=== PATIENT | female | born 1975 | race Caucasian/White ===

== ENCOUNTER 2016-08-10 18:47 | Emergency (ER) | payer OTHER ==
[2016-08-10 19:02] VITALS: BP 117/56; PULSE 66; RESP 18; TEMP 97; O2SAT 99
[2016-08-10 19:04] LABS: COLOR DARK YELLOW; LEUKOCYTE ESTERASE,URINE 1+ (NEGATIVE); NITRITE,URINE NEGATIVE (NEGATIVE)
[2016-08-10] MEDS ORDERED: PHENAZOPYRIDINE HCL 200 MG TAB ONE (19:08)
[2016-08-10 19:09] LABS: BACTERIA 1+ /hpf (NONE SEEN); MUCUS 1+ /lpf (NONE-1+); RBC,URINE >182 /hpf (0-3); WBC,URINE 15-25 /hpf (0-3); YEAST OCCASIONAL /hpf (NONE SEEN)
[2016-08-10] MEDS ORDERED: PHENAZOPYRIDINE HCL 200 MG TAB PO ONE (19:10)
[2016-08-10] MEDS ORDERED: CEPHALEXIN 500MG PREPACK#4 BTL TAKEHOME ONE (19:43)
[2016-08-10] MEDS ORDERED: CEPHALEXIN 500 MG CAP PO ONE (19:43)
--- NOTE | 2016-08-10 19:46 | UCPHY ---
H & P Time Seen by Provider: 08/10/16 19:00 Patient Type: New HPI/ROS: HPI Urinary complaints. 41-year-old female by private vehicle. She complains of burning with urination and increased frequency for the last 12-24 hours. No fever. No vomiting. No back pain. ROS: Constitutional: No fever, no chills. No weakness. Gastrointestinal: No abdominal pain, no vomiting, no diarrhea. Genitourinary: No hematuria. As above. Musculoskeletal: No back pain. Skin: No rashes. Neurological: No headache. Past medical history: No significant past medical history. No allergies to antibiotics. Social history: Here by herself. Nonsmoker. Physical Exam: General Appearance: Alert, no distress. This patient is responding to questions appropriately and in full sentences. This patient appears well- hydrated and well-nourished. Eyes: Pupils equal and round no pallor or injection. No lid edema, erythema or injection. Gastrointestinal: Abdomen is soft and nontender, no masses, bowel sounds normal. No focal tenderness at McBurney's point. No Jhaveri sign. Neurological: Motor sensory function is grossly intact. Cranial nerves are normal. Gait is normal. Skin: Warm and dry, no rashes. Musculoskeletal: No CVA tenderness on palpation bilaterally. Extremities are symmetrical. All joints range without pain or impingement. Psychiatric: No agitation. No depression. Database: EKG: Imaging: Procedures: Emergency department course: Urinalysis indicates urinary tract infection. Patient started on Keflex, 500 mg at urgent care. Plan will be to discharge her with a prescription for Keflex , 500 mg, 4 times daily for the next 5 days for treatment of urinary tract infection. Follow-up and return to Urgent Care precautions reviewed with her. All of her questions were answered. She was discharged in good condition. Differential Diagnosis: The differential diagnosis on this patient includes but is not limited to urinary tract. Pyelonephritis, STD unlikely. This represents a partial list of diagnoses considered. These considerations are based on history, physical exam, past history, reassessment and diagnostic testing. Smoking Status: Never smoked Constitutional: Initial Vital Signs Temperature (C) 36.1 C 08/10/16 19:00 Heart Rate 66 08/10/16 19:00 Respiratory Rate 18 08/10/16 19:00 Blood Pressure 117/56 L 08/10/16 19:00 O2 Sat (%) 99 08/10/16 19:00 O2 Delivery Mode Room Air Allergies/Adverse Reactions: No Known Allergies Allergy (Unverified 08/10/16 18:59) Home Medications: Medication Instructions Recorded Cephalexin [Keflex (*)] 500 mg PO Q6 5 Days 08/10/16 Sertraline HCl [Zoloft 50mg (*)] 08/10/16 Medical Decision Making - Data Points Laboratory Results: 08/10/16 18:55 Urine Color DARK YELLOW Urine Appearance CLOUDY Urine pH 6.0 (5.0-7.5) Ur Specific [place] 1.015 (1.002-1.030) Urine Protein 2+ H (NEGATIVE) Urine Ketones NEGATIVE (NEGATIVE) Urine Blood 3+ H (NEGATIVE) Urine Nitrate NEGATIVE (NEGATIVE) Urine Bilirubin NEGATIVE (NEGATIVE) Urine Urobilinogen 0.1 EU EU (0.2-1.0) Ur Leukocyte Esterase 1+ H (NEGATIVE) Urine RBC >182 /hpf H /hpf (0-3) Urine WBC 15-25 /hpf H /hpf (0-3) Ur Epithelial Cells TRACE /lpf /lpf (NONE-1+) Urine Bacteria 1+ /hpf H /hpf (NONE SEEN) Urine Mucus 1+ /lpf /lpf (NONE-1+) Urine Yeast OCCASIONAL /hpf H /hpf (NONE SEEN) Ur Culture Indicated? INDICATED H (NI) Urine Glucose NEGATIVE (NEGATIVE) Departure - Departure Disposition: Home, Routine, Self-Care Clinical Impression: Urinary tract infection Condition: Good Instructions: Urinary Tract Infection in Women (ED) Additional Instructions: Read and follow provided instructions. Follow-up with your primary care physician in 1-2 days for re-evaluation as needed. Take medication as prescribed. Take antibiotics as prescribed through entire course of treatment. Keflex, 500 mg: Take 1 pill every 6 hours, for 5 days. Return to the emergency department for worsening pain, vomiting, fever, back pain or other serious concerns. Referrals: Jack Stein MD [Primary Care Provider] - As per Instructions Prescriptions: Cephalexin [Keflex (*)] 500 mg PO Q6 5 Days - PQRS PQRS Measurement: Not applicable.
== END 2016-08-10 19:58 | disposition home or self-care (01) ==
LOC: CED 18:47
DX: N39.0 Urinary tract infection, site not specified (principal)
CPT/HCPCS: 81003-PO; 81015-PO; G0463-PO